=== PATIENT | male | born 1980 | race Caucasian/White ===

== ENCOUNTER 2016-11-08 05:20 | Day surgery (SDC) | payer OTHER ==
[~2016-11-08] VITALS: Ht 175.3 cm; Wt 83.0 kg
[2016-11-08 07:30] VITALS: BP 127/80
[2016-11-08 10:56] VITALS: BP 127/80
== END 2016-11-08 13:12 | disposition home or self-care (01) ==
LOC: TBA 05:20 → OR 05:20
DX: S73.192A Other sprain of left hip, initial encounter (principal); M25.852 Other specified joint disorders, left hip; M24.152 Other articular cartilage disorders, left hip; F32.89 Other specified depressive episodes; F17.210 Nicotine dependence, cigarettes, uncomplicated; Y99.8 Other external cause status; X58.XXXA Exposure to other specified factors, initial encounter; Y93.89 Activity, other specified; Y92.89 Other specified places as the place of occurrence of the external cause
CPT/HCPCS: 50010; 50101; 50386; 50612; 51538; 52298; 52304; 55430; 56524; 56527; 57092; 62110; 62900; 64043; 70005